=== PATIENT | female | born 2000 ===

== ENCOUNTER 2021-07-25 14:35 | Observation (INO) | payer MEDICAID ==
[~2021-07-25] VITALS: Ht 167.6 cm; Wt 71.2 kg
== END 2021-07-25 16:45 | disposition home or self-care (01) ==
LOC: LDRP 14:35
PROVIDERS: ADMIT Obstetrics & Gynecology; ATTEND Obstetrics & Gynecology
DX: O62.9 Abnormality of forces of labor, unspecified (principal); Z3A.22 22 weeks gestation of pregnancy; Z98.891 History of uterine scar from previous surgery
CPT/HCPCS: 59025; 81002; 94760; G0378

== ENCOUNTER 2021-07-28 10:40 | Observation (INO) | payer MEDICAID | END 2021-07-28 13:51 | disposition left against medical advice (07) | LOC: LDRP 10:40 | PROVIDERS: ADMIT Obstetrics & Gynecology; ATTEND Obstetrics & Gynecology | DX: O26.892 Other specified pregnancy related conditions, second trimester (principal); R10.9 Unspecified abdominal pain; K92.0 Hematemesis; Z3A.22 22 weeks gestation of pregnancy; Z98.891 History of uterine scar from previous surgery | CPT/HCPCS: G0378 ==